=== PATIENT | male | born 1950 | race Caucasian/White ===

== ENCOUNTER 2017-04-13 08:18 | Observation (INO) | payer OTHER ==
[~2017-04-13] VITALS: Ht 172.7 cm; Wt 61.4 kg
--- NOTE | ~2017-04-13 | CN ---
PATIENT NAME:HAKEEM DANIELLE MEDICAL RECORD: [id number] : 54 LOCATION:D. D.2117 ADMIT DATE: 04/13/17 ACCOUNT: [id number] CONSULTING PHYSICIAN: GEORGIA RAYGOZA MD REFERRING PHYSICIAN: JEANNIE CYR DO DATE OF CONSULTATION: 04/13/2017 HISTORY OF PRESENT ILLNESS: A 66-year-old gentleman with no known history of coronary artery disease, admitted with chest pain, abrupt onset of dizziness, some typical pleuritic factors, worse with lying flat, better with sitting up. Worse with deep inspiration, although also worse with expiration. Pain improved markedly at this point. CTA is negative and cardiac enzymes negative as is BMP. EKG without acute ischemic changes. We are asked to see him concerning his cardiovascular status. PAST MEDICAL HISTORY: Obstructive pulmonary disease. ALLERGIES: CODEINE. MEDICATIONS: [id number] vitamin supplements, no other current medications. SOCIAL HISTORY: , lives here in [place]. He exercises 3-4 days a week. No recent decrease in effort tolerance. He does smoke about a pack a day. REVIEW OF SYSTEMS: The patient reports easy bruising but reports no swollen glands. The patient reports no fever, no night sweats, no significant weight gain, no significant weight loss. No significant exercise tolerance. The patient reports no dry eyes, no irritation, no vision change. Patient reports no difficulty hearing and no ear pain. Patient reports no frequent nose bleeds or nose and sinus problems. Patient reports on arm pain on exertion. No shortness of breath while lying down. No history of heart murmur. Patient reports no cough, no wheezing or coughing up blood. Patient reports no abdominal pain, no vomiting. Normal appetite. No diarrhea and not vomiting blood. No nausea and no constipation. Patient reports no incontinence. No difficulty urinating. No hematuria. No increased frequency. Patient reports no muscle aches. No weakness, no arthralgias, no back pain. No swelling of the extremities. Patient reports no abnormal mole, no jaundice, no rashes. Reports no loss of consciousness. No weakness and no numbness. No seizures, dizziness, or headaches. The patient reports no depression, no sleep disturbance, feeling safe in a relationship and no alcohol abuse. Patient reports on fatigue. Reports no runny nose or sinus pressure. No itching, no hives, and no frequent sneezing. PHYSICAL EXAMINATION: GENERAL: Pleasant gentleman in no acute distress, appears stated age. VITAL SIGNS: Blood 134/65, pulse 64 and regular. HEENT: Normocephalic, atraumatic. NECK: No JVD or bruit. HEART: Regular, slight for prolonged expiratory phase, few index expiratory wheezes. ABDOMEN: Soft, nontender. EXTREMITIES: Pulse is well preserved, 2+ with no edema. NEUROLOGIC: Grossly intact. CONSULT REPORT [id number] HAKEEM DANIELLE DIAGNOSTIC DATA: ECG, acute ischemic changes. IMPRESSION: Chest pain, would give one dose of steroids. He is not sure diagnostic as therapeutic purposes. We would check echocardiographic study, serial enzymes as you are doing. Further recommendations based on clinical course. TRANSINT:[id number] Voice Confirmation ID: [id number] DOCUMENT ID: [id number] GEORGIA RAYGOZA MD CC: [id number] DICTATION DATE: 04/13/17 1420 SENIOR INFRASTRUCTURE ARCHITECT: 04/14/17 0504 DIS IN 04/13/17 [facility] [address] [place] [address]
[~2017-04-13 08:18] MED LIST: ASPIRIN EC81 MG; FISH OIL 1,0001 CA1; GALZIN50 MG PO; VITAMIN B-122500 MCG SL; VITAMIN C1000 MG PO
[2017-04-13 09:33] LABS: BASOPHILS 0.1 % (0-2); EOSINOPHILS 0.3 % (0-7); HEMATOCRIT 45.6 % (42.0-54.0); HEMOGLOBIN 15.4 g/dL (13.5-17.5); IMMATURE GRANULOCYTES 0.2 % (0-5); MCH 33.6 pg (26.0-34.0); MCHC 33.8 g/dL (31.0-37.0); MCV 99.6 fL (80.0-100.0); MEAN PLATELET VOLUME 10.4 fL (7.4-10.4); MONOCYTES 7.1 % (2-11); NEUTROPHILS 88.3 % (40-80); PLATELET COUNT 212 10x3/uL (130-400); RBC 4.58 10x6/uL (4.20-6.10); RDW 13.8 % (11.5-14.5); WBC 17.1 10x3/uL (4.8-10.8)
[2017-04-13 09:42] LABS: APTT 27.5 SECONDS (22.8-39.4); PROTIME 13.1 SECONDS (11.6-15.0)
[2017-04-13 09:44] LABS: D-DIMER-QUANTITATIVE 0.29 ug/mLFEU (0.20-0.54)
[2017-04-13 09:48] LABS: ALBUMIN 3.6 g/dL (3.4-5.0); ALKALINE PHOSPHATASE 82 U/L (46-116); ALT (SGPT) 22 U/L (10-68); BILIRUBIN - TOTAL 0.55 mg/dL (0.2-1.3); CALC OSMOLALITY 280 mosm/kg (275-300); CARBON DIOXIDE 27.9 mmol/L (21.0-32.0); CHLORIDE - SERUM 105 mmol/L (98-107); CREATININE - SERUM 1.1 mg/dL (0.6-1.3); GLUCOSE 121 mg/dL (74-106); POTASSIUM - SERUM 3.9 mmol/L (3.5-5.1); SODIUM 140 mmol/L (136-145); UREA NITROGEN 16 mg/dL (7-18); eGFR NON AFRICAN AMERICAN 71 mL/min (90-120)
[2017-04-13 09:53] LABS: CREATINE KINASE 123 UL (21-232); LIPASE 151 U/L (73-393); PRO BNP 144 pg/mL (0-125)
[2017-04-13 09:58] LABS: TROPONIN-I < 0.017 ng/mL (0.000-0.060)
[2017-04-13 10:25] LABS: APPEARANCE CLEAR (CLEAR); COLOR YELLOW (YELLOW); SPECIFIC GRAVITY 1.015 (1.005-1.020)
[2017-04-13 10:26] LABS: BILIRUBIN NEGATIVE (NEGATIVE); GLUCOSE NEGATIVE (NEGATIVE); KETONE MODERATE mg/dL (NEGATIVE); LEUKOCYTE ESTERASE NEGATIVE (NEGATIVE); NITRITE NEGATIVE (NEGATIVE); PROTEIN NEGATIVE (NEGATIVE); UROBILINOGEN NORMAL (NORMAL)
--- NOTE | 2017-04-13 12:36 | NUR ---
Transfer from er by w/c. Billinted to room. Call light in reach. Will cont. plan of care.
[2017-04-13] MEDS ORDERED: VITAMIN E400 UNI2 PO (12:40)
[2017-04-13 13:01] VITALS: BP 134/65; Ht 172.7 cm; Wt 61.4 kg
--- NOTE | 2017-04-13 17:12 | NUR ---
Patient Name: HAKEEM DANIELLE Admission Status: ER Accout number: [id number] Admission Date: 04-13-2017 : 1950 Admission Diagnosis: Attending: KENDELL Current LOS: 1 Anticipated DC Date: 04-13-2017 [place] Disposition: [place] Primary [place]: [employer] PLANNED EXTERNAL PROVIDER: [facility] Discharge Planning Comments: * Is the patient Alert and Oriented? Yes 0 * How many steps to enter\exit or inside your home? NONE 0 * PCP [facility] [place] [facility] * Pharmacy [facility] 0 * Preadmission Environment Home with Family 0 * ADLs Independent 0 * Equipment None 0 * Other Equipment [facility] 0 * List name and contact numbers for known caregivers / representatives who currently or will assist patient after discharge: CRYSTAL DANIELLE, SPOUSE, 0 * Community resources currently utilized None 0 * Please name any agencies selected above. NONE 0 * Additional services required to return to the preadmission environment? No 0 * Can the patient safely return to the preadmission environment? Yes 0 * Has this patient been hospitalized within the prior 30 days at any hospital? No 0 CM NOTIFIED [place] ADMITTED TO [facility]LO[facility] ONLY AND HE TOLD REGISTRATION HE DID NOT WANT TRANSFER TO [place] [facility]. CM MET WITH PT AND SPOUSE IN ROOM TO DISCUSS DISCHARGE PLANNING AND NEEDS. PT REPORTS LIVING AT HOME INDEPENDENTLY WITH HIS SPOUSE. PT HAS NO MEDICAL EQUIPMENT AND NO OUTSIDE SERVICES ASSISTING IN THE HOME. CM DISCUSSED AVAILABILITY OF [place] [facility] TRANSFER. PT ASKED IF [place] WILL PAY HIS [facility] BILL; CM EXPLAINED THAT [facility] WILL NOT CONSIDER PAYING H[facility]PITAL HERE UNLESS PT IS WILLING FOR [facility] TRANSF[facility]. PT AND SPOUSE ASKED CM TO CALL [place] AND REQUEST TRANFER AND IF NO BED IS AVAILABLE, PLACE ON LIST FOR TRANSFER. CM CALLED [place] [facility] EXPEDITOR OFFICE, , SPOKE TO YAHAIRA CASH WHO TOOK PT'S INFORMATION AND WILL FORWARD IT TO HER DOCTOR FOR REVIEW. CM PROVIDED UNIT PHONE AND FAX NUMBER FOR [facility] CONTACT TO [facility]SF[facility] IF ACCEPTED. PT NOTIFIED. Electrical Machine Builder: Eric Porras
[2017-04-13] MEDS ORDERED: OMNICEF300 MG PO (17:41)
[2017-04-13] MEDS ORDERED: MEDROL DOSE PACK4 MG PO (17:41)
--- NOTE | 2017-04-13 17:44 | NUR ---
CM: [facility] MD called, Dr Mayes, spoke to Dr Erickson jo the [facility] will accept patient to the admitting area today. Notified [facility] of same and provided the phone number for contact. Lisa Poe RN.
[2017-04-13 18:09] VITALS: BP 129/58
--- NOTE | 2017-04-13 18:18 | NUR ---
IV AND TELEMETRY DCD. DC PLANS GIVEN. UNDERSTANDING VOICED.
== END 2017-04-13 18:19 | disposition home or self-care (01) ==
LOC: D.ER 08:18 → OBSVTIME 11:58 → D.M2 11:58
PROVIDERS: Emergency Medicine; ADMIT Family Medicine
DX: J44.1 Chronic obstructive pulmonary disease with (acute) exacerbation (principal); Z72.0 Tobacco use

== ENCOUNTER 2018-10-23 05:50 | Day surgery (SDC) | payer MEDICARE, OTHER ==
[2018-10-22 11:58] LABS: BASOPHILS 0.2 % (0-2); EOSINOPHILS 1.4 % (0-7); HEMATOCRIT 46.6 % (42.0-54.0); HEMOGLOBIN 16.1 g/dL (13.5-17.5); IMMATURE GRANULOCYTES 0.1 % (0-5); LYMPHOCYTES 20.1 % (15-50); MCHC 34.5 g/dL (31.0-37.0); MCV 98.3 fL (80.0-100.0); MEAN PLATELET VOLUME 10.2 fL (7.4-10.4); MONOCYTES 7.9 % (2-11); NEUTROPHILS 70.3 % (40-80); PLATELET COUNT 230 10x3/uL (130-400); RBC 4.74 10x6/uL (4.20-6.10); WBC 9.8 10x3/uL (4.8-10.8)
[2018-10-22 12:08] LABS: CALC OSMOLALITY 274 mosm/kg (275-300); CALCIUM 9.2 mg/dL (8.5-10.1); CARBON DIOXIDE 27.8 mmol/L (21.0-32.0); CHLORIDE - SERUM 102 mmol/L (98-107); CREATININE - SERUM 0.9 mg/dL (0.6-1.3); GLUCOSE 94 mg/dL (74-106); POTASSIUM - SERUM 4.2 mmol/L (3.5-5.1); SODIUM 137 mmol/L (136-145); UREA NITROGEN 15 mg/dL (7-18); eGFR NON AFRICAN AMERICAN 90 mL/min (90-120)
[~2018-10-23] VITALS: Ht 175.3 cm; Wt 65.3 kg
--- NOTE | ~2018-10-23 | OP ---
PATIENT NAME: HAKEEM DANIELLE MEDICAL RECORD: [id number] :54 LOCATION:D.OPS ADMISSION DATE: SURGEON: CRESCENCIO PEÑA MD DATE OF OPERATION: 10/23/2018 PREOPERATIVE DIAGNOSES: 1. Right inguinal hernia. 2. Tobacco dependence syndrome. POSTOPERATIVE DIAGNOSES: 1. Right inguinal hernia. 2. Tobacco dependence syndrome. PROCEDURE: Right inguinal hernia repair with medium PHS mesh. SURGEON: Crescencio Peña MD CLINICAL SUPPORT NURSE: Brooklynn Ernst APRN REPORT OF OPERATION: The patient's right groin was prepped and draped in sterile fashion. An oblique incision was made above the inguinal ligament. Electrocautery was used to dissect through the subcutaneous tissue to the external oblique fascia. This fascia was opened up to the external ring using electrocautery. The spermatic cord was elevated and a [place] was placed around it. The ilioinguinal nerve was then found and high ligated. The patient was noted to have a direct hernia defect which was moderate in size. We penetrated through this defect and opened up the preperitoneal space of Retzius. The medium PHS mesh was then inserted into the space and fanned out over the tissues. This was sutured into place with multiple interrupted 0 Vicryls. The wound was then irrigated out with normal saline and care was taken to assure there was no sign of any bleeding. At this point, the external oblique fascia was closed with running 2-0 Vicryl, Orly's was closed with interrupted 3-0 Vicryl, and the skin was closed with running subcutaneous 5-0 Monocryl. A 10 mL of 0.25% Marcaine with epinephrine were infused into the surrounding tissues and the wound was dressed appropriately. COMPLICATIONS: None. CONDITION: Stable. ANESTHESIA: General endotracheal and local. BLOOD LOSS: Minimal. TRANSINT:[id number] Voice Confirmation ID: [id number] DOCUMENT ID: [id number] CRESCENCIO PEÑA MD CC: [id number] DICTATION DATE: 10/23/18845 SONG WRITER: 10/23/18924 [facility] [address] [id number]
[~2018-10-23 05:50] MED LIST changes: +IBUPROFEN200 MG PO; +MEDROL DOSE PACK4 MG PO; +OMNICEF300 MG PO; +VITAMIN B-122500 MCG PO; -VITAMIN B-122500 MCG SL; +VITAMIN E400 UNI2 PO
[2018-10-23 06:13] VITALS: Ht 175.3 cm; Wt 65.3 kg
[2018-10-23] MEDS ORDERED: DILAUDID2 MG PO (08:43)
== END 2018-10-23 11:40 | disposition home or self-care (01) ==
LOC: D.OPS 05:50 → D.PAN 08:00 → D.OPS 08:00
PROVIDERS: Surgery
DX: K40.90 Unilateral inguinal hernia, without obstruction or gangrene, not specified as recurrent (principal); F17.200 Nicotine dependence, unspecified, uncomplicated; Z01.812 Encounter for preprocedural laboratory examination